=== PATIENT | male | born 1945 | race Caucasian/White ===

== ENCOUNTER → 2017-02-09 | Outpatient (CLI) | payer MEDICARE, BC ==
--- NOTE | 2017-02-09 10:35 | RAD ---
Indication fall. Pain. Lateral views targeted to the nasal bone were obtained as well as a Thomson' view. The visualized paranasal sinuses appear normal. The nasal bone and nasal spine appear normal. IMPRESSION: No evidence of nasal fracture
== END | disposition home or self-care (01) ==
LOC: DXRADRC 09:52
PROVIDERS: ATTEND Physician Assistant
DX: J34.89 Other specified disorders of nose and nasal sinuses (principal); W19.XXXA Unspecified fall, initial encounter
CPT/HCPCS: 70150

== ENCOUNTER → 2019-08-29 | Day surgery (SDC) | payer MEDICARE, BC ==
[~2019-08-29] MED LIST: ACETAMINOPHEN 325 MG TABLET PO PRN; ALBUTEROL SULFATE 2.5 MG/3 ML NEBU. NEB PRN; ASPI325T8 PO; ATEN25TA42 PO; ATROPINE 0.5 MG/5 ML DISP.SYRIN. IV PRN; BALANCED SALT IRRIG OPHTH SOLN 15 ML BOTTLE. IRR ONE; CATARACT OPHTH GEL 0.5 ML SYRINGE. OD ONE; CHONDROIT-SOD-HYALURONATE KIT. OD ONE; EPINEPHrine AMPULE 0.5 MG in BALANCED SALT IRRIG SOLN PLUS 500 ML IO ONE; ERYTHROMYCIN 0.5% OPHTH OINTMENT 1GM TUBE. OD ONE; FLUO20CA16 PO; GEMF600T8 PO; HYALURONIDASE 75UNITS in LIDOCAINE 2% PF OPHTH 10 ML SYRINGE. OD ONE; IV RINGERS SOLUTION,LACTATED 1,000 ML IV SCH; KETOROLAC TROMETHAMINE 0.5% OPHTH SOLUTION BOTTLE. OD SCH; LIDO/EPI IN BSS OPHTH 8 ML SYRINGE OD SCH; MIDAZOLAM HCL PF 2 MG/2 ML VIAL. IV PRN; MIRT15TA3 PO; MOXIFLOXACIN 0.5% OPHTH SOLUTION 3ML BOTTLE. OD SCH; ONDANSETRON PF 4 MG/2 ML VIAL. IV PRN; PHENOL ORAL SPRAY 177ML BOTTLE. MM PRN; POVIDONE-IODINE 5% OPHTH SOLUTION 30ML BOTTLE. OD ONE; PROPOFOL 10,000 MCG/ML (20ML) VIAL IV ONE; PROPOFOL 20 ML IV ONE; TERA10CA3 PO; TETRACAINE 0.5% OPHTH SOLUTION 4ML BOTTLE. OD ONE; TETRACAINE 0.5% OPHTH SOLUTION 4ML BOTTLE. OU ONE; diphenhydrAMINE 50 MG/ML VIAL IV PRN; prednisoLONE ACETATE 1% OPHTH SUSPENSION 5ML BOTTLE. OD SCH
[2019-08-29] MEDS: MOXIFLOXACIN 0.5% OPHTH SOLUTION 3ML BOTTLE. OD SCH ×3 (09:44→09:51)
--- NOTE | 2019-08-29 10:32 | PDOC4 ---
Senile Cataract, Right Eye Date of Procedure: Aug 29, 2019 Preoperative Diagnosis: Preoperative Diagnosis: Senile Cataract, Right Eye Postoperative Diagnosis: Senile Cataract, Right Eye Anesthesia: Local with monitored anesthesia care Surgeon: Bhaskar Hernandez D.O. Procedure: Right Phacoemulsification with Intraocular Lens Implant Findings: Senile CataraCT Indications: Worsening vision interfering with patient's lifestyle Narrative: After discussing the risks, complications and alternatives, including but not limited to loss of vision, infection, bleeding, swelling, anesthetic reaction, capsule rupture with vitreous loss, etc., the patient was given a peribulbar block under mild IV sedation and cardiac monitoring. Pressure was applied to the eye for approximately 10 minutes. The patient was transferred to the main operating room and was prepped and draped in the usual sterile fashion and positioned under the microscope. A lid speculum was placed. A temporal clear corneal incision was made with a keratome and viscoelastic was injected into the eye. A side port incision was made. A continuous tear capsulorrhexis was performed, hydrodissection was accomplished with balanced salt solution. The phacoemulsification needle was placed in the eye and the nucleus was emulsified. The remaining cortical material was removed with the irrigation and aspiration apparatus. The capsule was polished as needed. The posterior capsule was noted to be clean and intact. Viscoelastic was injected into the eye inflating the capsular bag. An intraocular lens was injected into the eye, unfolding as desired and was positioned in the capsular bag. The viscoelastic was aspirated from the eye. The wound edges were hydrated with balanced salt solution and there were no leaks. Viscoelastic was injected over the limbal incisions. Antibiotic and steroid were placed on the eye. The lid speculum was removed, the eye patched shut and a Clinton shield applied. There were no complications and the patient was taken to the PACU in good condition. BHASKAR HERNANDEZ DO Aug 29, 2019 10:32
[2019-08-29 10:54] VITALS: BP 123/71
== END | disposition home or self-care (01) ==
LOC: SURG 07:54
PROVIDERS: ATTEND Ophthalmology
DX: H25.11 Age-related nuclear cataract, right eye (principal); F32.9 Major depressive disorder, single episode, unspecified; F41.9 Anxiety disorder, unspecified; E78.00 Pure hypercholesterolemia, unspecified; I10 Essential (primary) hypertension; Z79.899 Other long term (current) drug therapy; Z98.890 Other specified postprocedural states; Z79.82 Long term (current) use of aspirin
CPT/HCPCS: 66984; J0171; J2704; V2632

== ENCOUNTER → 2020-03-06 | Outpatient (CLI) | payer MEDICARE, BC ==
[2019-08-29 10:54] VITALS: BP 123/71
[~2020-03-06] MED LIST changes: -ACETAMINOPHEN 325 MG TABLET PO PRN; -ALBUTEROL SULFATE 2.5 MG/3 ML NEBU. NEB PRN; -ATROPINE 0.5 MG/5 ML DISP.SYRIN. IV PRN; -BALANCED SALT IRRIG OPHTH SOLN 15 ML BOTTLE. IRR ONE; -CATARACT OPHTH GEL 0.5 ML SYRINGE. OD ONE; -CHONDROIT-SOD-HYALURONATE KIT. OD ONE; -EPINEPHrine AMPULE 0.5 MG in BALANCED SALT IRRIG SOLN PLUS 500 ML IO ONE; -ERYTHROMYCIN 0.5% OPHTH OINTMENT 1GM TUBE. OD ONE; -HYALURONIDASE 75UNITS in LIDOCAINE 2% PF OPHTH 10 ML SYRINGE. OD ONE; +IOHEXOL 300 MG/ML 75 ML VIAL. IV ONE; +IOHEXOL 300 MG/ML 75 ML VIAL. ONE; -IV RINGERS SOLUTION,LACTATED 1,000 ML IV SCH; -KETOROLAC TROMETHAMINE 0.5% OPHTH SOLUTION BOTTLE. OD SCH; -LIDO/EPI IN BSS OPHTH 8 ML SYRINGE OD SCH; -MIDAZOLAM HCL PF 2 MG/2 ML VIAL. IV PRN; -MOXIFLOXACIN 0.5% OPHTH SOLUTION 3ML BOTTLE. OD SCH; -ONDANSETRON PF 4 MG/2 ML VIAL. IV PRN; -PHENOL ORAL SPRAY 177ML BOTTLE. MM PRN; -POVIDONE-IODINE 5% OPHTH SOLUTION 30ML BOTTLE. OD ONE; -PROPOFOL 10,000 MCG/ML (20ML) VIAL IV ONE; -PROPOFOL 20 ML IV ONE; -TETRACAINE 0.5% OPHTH SOLUTION 4ML BOTTLE. OD ONE; -TETRACAINE 0.5% OPHTH SOLUTION 4ML BOTTLE. OU ONE; -diphenhydrAMINE 50 MG/ML VIAL IV PRN; -prednisoLONE ACETATE 1% OPHTH SUSPENSION 5ML BOTTLE. OD SCH
[2020-03-06 10:29] LABS: BASO % 1 % (0-3); EOS # 0.4 x10^3/uL (0.0-0.7); EOS % 6 % (0-3); HEMATOCRIT 49.2 % (39.0-53.0); HEMOGLOBIN 16.7 g/dL (13.0-17.5); LYMPH # 1.2 x10^3/uL (1.0-4.8); LYMPH % 16 % (24-48); MEAN CORPUSCULAR HEMOGLOBIN 33 pg (25-35); MEAN CORPUSCULAR HGB CONC 34 g/dL (31-37); MEAN CORPUSCULAR VOLUME 96 fL (79-100); MONO # 0.5 x10^3/uL (0.0-1.1); MONO % 7 % (0-9); NEUT # 5.3 x10^3uL (1.8-7.7); NEUT % 71 % (31-73); PLATELET COUNT 152 x10^3/uL (140-400); RED BLOOD COUNT 5.13 x10^6/uL (4.30-5.70); RED CELL DISTRIBUTION WIDTH 12.6 % (11.5-14.5); WHITE BLOOD COUNT 7.4 x10^3/uL (4.0-11.0)
[2020-03-06 10:33] LABS: ALBUMIN 3.9 g/dL (3.4-5.0); ALBUMIN/GLOBULIN RATIO 1.1 (1.0-1.7); CALCIUM 9.4 mg/dL (8.5-10.1); CREATININE 1.2 mg/dL (0.7-1.3); POTASSIUM 4.4 mmol/L (3.5-5.1); TOTAL BILIRUBIN 0.6 mg/dL (0.2-1.0); TOTAL PROTEIN 7.5 g/dL (6.4-8.2)
[2020-03-06 12:02] LABS: % ATYL 7 % (0-0); % EOS 1 % (0-5); % LYMPHS 15 % (24-48); % MONOS 10 % (0-10); % SEGS 67 % (35-66)
[2020-03-06 12:10] LABS: PLT ESTIMATE ADEQUATE (ADEQUATE)
--- NOTE | 2020-03-06 13:09 | RAD ---
CT SOFT TISSUE NECK W/CONTRAST Indication: Dysphagia for one week Technique: Postcontrast CT imaging was performed of the neck, multiplanar reconstruction images submitted. One or more of the following individualized dose reduction techniques were utilized for this examination: 1. Automated exposure control 2. Adjustment of the mA and/or kV according to patient size 3. Use of iterative reconstruction technique. Comparison: None Findings: There is a motion degradation. There is some groundglass density of the visualized upper lobes near the lung apices bilaterally although appearance could be accentuated by motion. Airway is overall patent. No significant abnormality is identified of the thyroid gland. No significant mass is identified of the true or false cords, epiglottis, or aryepiglottic folds by this exam. No significantly enlarged or necrotic nodes are identified of the neck. There is preservation of the parapharyngeal fat planes bilaterally. Distal cervical internal carotid arteries are tortuous bilaterally. There is multilevel fairly advanced cervical degenerative disc disease variably throughout cervical spine also multilevel spondylosis. There is suspected central canal stenosis at C5-6 on the order of 5 to 6 mm, to a somewhat lesser degree at other levels. There is multilevel cervical facet and uncovertebral degenerative change contributing to multilevel cervical neural foramina compromise greatest right greater than left at C3-4 and C4-5 and bilaterally at C5-6, on the left at C6-7, on the right at C7-T1, also degree of narrowing bilaterally at T1-2. There has been right parietal temporal craniotomy, head not fully evaluated IMPRESSION: 1. No significant neck mass is identified. 2. There could be some groundglass density of the visualized upper lobes as may be seen with nonspecific inflammatory change, edema, or atypical infection although appearance may be accentuated by motion degradation. 3. There is multilevel cervical degenerative disc disease and spondylosis, multilevel cervical spinal stenosis. Facet and uncovertebral degenerative change contributes to multilevel cervical neural foramina compromise. Electronically signed by: Brian Domínguez MD (03/06/2020 1:06 PM) [id number]
[2020-03-07 02:07] LABS: HEMOGLOBIN A1C 10.4 % (4.8-5.6)
[2020-03-07 14:04] LABS: FREE T4 1.15 ng/dL (0.76-1.46); THYROID STIM HORMONE (TSH) 1.586 uIU/mL (0.358-3.740)
== END ==
LOC: PMG 09:39
PROVIDERS: ATTEND Physician Assistant Medical
DX: M50.30 Other cervical disc degeneration, unspecified cervical region (principal); R73.09 Other abnormal glucose; M48.02 Spinal stenosis, cervical region; M47.812 Spondylosis without myelopathy or radiculopathy, cervical region
CPT/HCPCS: 36415; 70491; 80053; 83036; 84439; 84443; 85007; 85025; Q9967

== ENCOUNTER → 2020-06-19 | Outpatient (CLI) | payer MEDICARE, BC ==
[2019-08-29 10:54] VITALS: BP 123/71
[~2020-06-19] MED LIST changes: -IOHEXOL 300 MG/ML 75 ML VIAL. IV ONE; -IOHEXOL 300 MG/ML 75 ML VIAL. ONE
[2020-06-19 10:16] LABS: BASO % 0 % (0-3); EOS % 0 % (0-3); HEMOGLOBIN 16.1 g/dL (13.0-17.5); LYMPH # 0.5 x10^3/uL (1.0-4.8); LYMPH % 8 % (24-48); MEAN CORPUSCULAR HEMOGLOBIN 32 pg (25-35); MEAN CORPUSCULAR HGB CONC 34 g/dL (31-37); MEAN CORPUSCULAR VOLUME 95 fL (79-100); MONO # 0.4 x10^3/uL (0.0-1.1); MONO % 7 % (0-9); NEUT # 5.5 x10^3uL (1.8-7.7); NEUT % 85 % (31-73); PLATELET COUNT 190 x10^3/uL (140-400); RED BLOOD COUNT 5.08 x10^6/uL (4.30-5.70); RED CELL DISTRIBUTION WIDTH 12.7 % (11.5-14.5); WHITE BLOOD COUNT 6.4 x10^3/uL (4.0-11.0)
[2020-06-19 10:23] LABS: ALBUMIN 3.2 g/dL (3.4-5.0); ALBUMIN/GLOBULIN RATIO 0.8 (1.0-1.7); CALCIUM 8.7 mg/dL (8.5-10.1); CREATININE 1.3 mg/dL (0.7-1.3); GFR 53.8; POTASSIUM 3.3 mmol/L (3.5-5.1); TOTAL BILIRUBIN 1.1 mg/dL (0.2-1.0); TOTAL PROTEIN 7.1 g/dL (6.4-8.2)
--- NOTE | 2020-06-19 11:48 | RAD ---
EXAM: Abdomen and pelvis CT without intravenous contrast. HISTORY: Pain. TECHNIQUE: Computed tomographic images of the abdomen and pelvis were obtained without contrast. Multiplanar reformatting was performed. *One or more of the following individualized dose reduction techniques were utilized for this examination: 1. Automated exposure control. 2. Adjustment of the mA and/or kV according to patient size. 3. Use of iterative reconstruction technique. COMPARISON: None. FINDINGS: Evaluation of the lower thorax demonstrates multifocal groundglass opacities likely due to interstitial infiltrate superimposed on atelectasis. There is no consolidation or pleural effusion. The heart is normal in size. There is calcified atherosclerotic plaque involving the coronary arteries. There are degenerative changes involving the wrists, not fully assessed on this exam. No hepatic lesion is seen on this noncontrast exam. There is cholelithiasis. The pancreatic tail is difficult to characterize given the absence of contrast and dense calcifications related to the splenic artery in this distribution. The spleen is normal in size. The adrenal glands and kidneys are unremarkable. There is no appendicitis. There is extensive colonic diverticulosis. There is no convincing diverticulitis. The urinary bladder is distended. There is aortic and aortic branch vessel atherosclerosis. There is no aneurysm. There is a tiny fat-containing umbilical hernia. There is no lymphadenopathy. There are degenerative changes throughout the spine. There is no fracture or suspicious osseous lesion. IMPRESSION: 1. Extensive colonic diverticulosis without evidence of diverticulitis. 2. Cholelithiasis. 3. Multifocal groundglass opacities within the bilateral mid and lower lungs, the appearance of which suggests interstitial infiltrate superimposed on atelectasis. Correlate with symptomatology. Electronically signed by: Deepali Kiser MD (06/19/2020 11:45 AM) [id number]
[2020-06-19 17:24] LABS: FREE T4 1.1 ng/dL (0.76-1.46); THYROID STIM HORMONE (TSH) 1.655 uIU/mL (0.358-3.740)
== END ==
LOC: PMG 08:45
PROVIDERS: ATTEND Physician Assistant Medical
DX: K80.20 Calculus of gallbladder without cholecystitis without obstruction (principal); K57.30 Diverticulosis of large intestine without perforation or abscess without bleeding; M19.039 Primary osteoarthritis, unspecified wrist
CPT/HCPCS: 36415; 74176; 80053; 82150; 83690; 84439; 84443; 85025